=== PATIENT | female | born 1990 | race African-American/Black ===

== ENCOUNTER 2019-10-30 13:24 | Outpatient (CLI) | payer OTHER, SELFPAY ==
--- NOTE | ~2019-10-30 | US_ITS ---
EXAMINATION: US OB <= 14 weeks fetus DATE: 10/30/2019 14:34 INDICATION: Supervision of normal during first trimester TECHNIQUE: Real-time pelvic ultrasound utilizing both a transvaginal and transabdominal probe was pe rformed. The interpreting radiologist was not present for the study. COMPARISON: None. FINDINGS: The uterus measures 12.9 x 7.3 x 8.7 cm. There is an intrauterine gestational sac. A yolk sac and fe arabella pole are identified. The crown rump length measures 4.6 cm, which correlates with an estimated ge stational age of 11 weeks and 3 days. heart motion is identified measuring 161 beats per minute (bpm) by M-mode Doppler. 14 x 8 x 7 mm anechoic subchorionic hematoma along the left margin of the a nteriorly developing placenta. The right ovary measures 4.0 x 2.4 x 2.6 and contains a 2.0 cm anechoic likely corpus luteum cyst. Va scular flow identified in the right ovary on color Doppler. The left ovary is not visualized. There i s no free fluid in the pelvis. IMPRESSION: 1. Single living fetus with heart rate of 161 bpm. 2. Gestational age by ultrasound of 11 weeks 3 day(s) +/- 7 days with ultrasound estimated date of d elivery (SINDHU) of 05/17/2020. 3. Small subchorionic hematoma. Reviewed, dictated and finalized at location A. OWS SOFTWARE DEVELOPER IMPRESSION: 1. Single living fetus with heart rate of 161 bpm. 2. Gestational age by ultrasound of 11 weeks 3 day(s) +/- 7 days with ultrasou nd estimated date of delivery (SINDHU) of 05/17/2020. 3. Small subchorionic hematoma.
== END 2019-10-30 13:25 | disposition home or self-care (01) ==
LOC: ANHIMG 13:34
PROVIDERS: Visit Provider Physician Assistant
DX: Z34.90 Encounter for supervision of normal pregnancy, unspecified, unspecified trimester (principal); Z3A.11 11 weeks gestation of pregnancy; O36.8911 Maternal care for other specified fetal problems, first trimester, fetus 1
CPT/HCPCS: 76801

== ENCOUNTER 2024-07-03 12:39 | Outpatient (CLI) | payer OTHER, SELFPAY ==
[2024-07-03 14:20] LABS: Basophils Percent Auto 0.2 % (0.2-1.2); Eosinophils Absolute Auto 0.1 K/mm3 (0-0.3); Eosinophils Percent Auto 1.4 % (0-4.4); Hemoglobin 10.7 g/dL (12.0-15.0); Immature Granulocyte Absolute 0.07 K/mm3 (0.00-0.031); Immature Granulocyte Percent A 0.8 % (0-0.5); Lymphocytes Absolute Auto 1.24 K/mm3 (0.9-3.2); Lymphocytes Percent Auto 14.2 % (18.3-44.2); Mean Corpuscular HGB Conc 31.5 g/dl (32-36); Mean Corpuscular Hemoglobin 28.8 pg (26-34); Mean Corpuscular Volume 91.6 fl (80-100); Mean Platelet Volume 11.3 fl (7.4-10.4); Monocytes Absolute Auto 0.7 K/mm3 (0.1-0.6); Monocytes Percent Auto 8.4 % (2.6-8.5); Neutrophils Absolute Auto 6.6 K/mm3 (1.3-6.7); Platelet Count Result 232 k/mm3 (150-375); Red Blood Count 3.71 M/mm3 (4.2-5.4); Red Cell Distribution Width 13.3 % (11.5-14.5); White Blood Count 8.7 K/mm3 (4.5-10.0)
[2024-07-03 14:50] LABS: Glucose 1 Hour PP 50gm Dose 108 mg/dL
[2024-07-03 17:06] LABS: Rapid Plasma Reagin Non-Reactive (NonReactive)
[2024-07-03 18:24] LABS: HIV 1/2 Ab P24 Ag Result Negative (Negative)
== END 2024-07-03 12:40 | disposition home or self-care (01) ==
LOC: ANHLAB 12:44
PROVIDERS: Visit Provider Obstetrics & Gynecology
DX: Z34.90 Encounter for supervision of normal pregnancy, unspecified, unspecified trimester (principal); Z3A.00 Weeks of gestation of pregnancy not specified
CPT/HCPCS: 36415; 82947; 85025; 86592; 86703; G0432

== ENCOUNTER 2024-08-01 11:49 | Outpatient (RCR) | payer OTHER, SELFPAY ==
--- NOTE | ~2024-08-01 | US_ITS ---
EXAMINATION: US OB BPP wo non-stress DATE: 08/01/2024 14:02 ANALYTICAL LEAD INDICATION: Small for gestational age TECHNIQUE: Real-time transabdominal obstetric ultrasound. FINDINGS: No prior studies for comparison. There is a single living fetus in vertex presentation. The placenta is maternal left without placent a previa. cardiac activity and movement is noted with a heart rate of 133 beats per minute. Biophysical profile: breathin of 2 movement: 2 of 2 tone: 2 of 2 Amniotic flud pocket: 2 of 2 Total score: 8 of 8 IMPRESSION: 1. Single living intrauterine in vertex presentation. 2: Total biophysical profile score of 8/8. Reviewed, dictated and finalized at location B. YTICAL LEAD
[2024-08-01 13:29] VITALS: BP 123/86; PULSE 99
== END 2024-10-30 23:59 | disposition home or self-care (01) ==
LOC: ANHOBOP 11:49
PROVIDERS: Visit Provider Student in an Organized Health Care Education/Training Program
DX: O26.849 Uterine size-date discrepancy, unspecified trimester (principal)
CPT/HCPCS: 59025; 76819

== ENCOUNTER 2024-08-08 17:24 | Emergency (ER) | payer OTHER, SELFPAY ==
--- NOTE | 2024-08-08 17:50 | ED.EXTPRO ---
HPI - Extremity Problem General Chief complaint: Extremity Problem,Nontraumatic Stated complaint: swelling to hands and legs Time Seen by Provider: 08/08/24 17:50 Focused HPI: This is a 34 year old female that presents to the ER for swelling. This has been going on intermittently throughout her . She is currently 32 weeks. Her OB is Dr. Treviño. Denies chest pain or shortness of breath. She noticed her blood pressure has been running high as well today. She is feeling baby move. No bleeding or pelvic pain/cramping. GENERAL: Well-appearing, well-nourished, and in no acute distress. HEAD: Normocephalic, atraumatic. CHEST: Clear to auscultation. ?No respiratory distress. HEART: Regular rate and rhythm.? NEURO: ?Alert and oriented x3. Patient screened in triage and initial orders placed.? ?Additional care and disposition to be based upon?diagnostic testing and treatment. Related Data Home Medications Medication Instructions Recorded Confirmed albuterol sulfate 90 mcg/actuation inhalation 04/02/24 07/30/24 aerosol inhaler (Ventolin HFA) Allergies Allergy/AdvReac Type Severity Reaction Status Date / Time No Known Allergies Allergy Unknown Verified 07/30/24 09:43 [facility] Past Medical History Medical History Asthma HSV-2 (herpes simplex virus 2) infection Surgical History Surgical History History of delivery X 2 Family History Family History Mother Asthma Social History Social History Smoking status: Former smoker Smoking end date: 09/21/23 Alcohol intake: current Alcohol use details: occasional Substance use: never Substance use type: does not use Do You Feel Safe in your Home?: Yes Lack of Transportation: No Lack of Food: Never True Current Housing: I Have Housing Concerned About Future Housing: No Difficulty Paying Gas/Electric Bills: No Difficulty Paying for Meds: YES Currently Unemployed: No Education: Trade/Vocational Certificate Difficulty w/ Childcare or Family Care: No Living arrangements: with family Occupation/Education: occupation 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 Gender identity (if verbalized by the patient): Female Sexual Orientation (if Verbalized by the Patient): Straight or Heterosexual Discharge Plan Discharge Prescriptions: No Action vit-iron fum-folic ac 65 mg iron- 1 mg tablet 1 tablet PO DAILY Qty: 90 3RF albuterol sulfate [Ventolin HFA] 90 mcg/actuation HFA aerosol inhaler inhalation Abrysvo (PF) 120 mcg/0.5 mL recon soln 0.5 ml IM ONCE Qty: 1 0RF Rx Instructions: as a single dose fluticasone propion-salmeterol [Advair Diskus] 100-50 mcg/dose blister with device 1 inh inhalation Q12H Qty: 60 3RF Follow-up/Referrals: PHYSICIAN NOT ON STAFF,NONSTAFF [Primary Care Provider] -
[2024-08-08 17:57] VITALS: BP 145/89; PULSE 90; RESP 20; TEMP 36.7; O2SAT 100
[2024-08-08 18:31] LABS: Basophils Percent Auto 0.2 % (0.2-1.2); Eosinophils Absolute Auto 0.2 K/mm3 (0-0.3); Hematocrit 33.4 % (37.0-47.0); Hemoglobin 10.8 g/dL (12.0-15.0); Immature Granulocyte Absolute 0.04 K/mm3 (0.00-0.031); Immature Granulocyte Percent A 0.4 % (0-0.5); Lymphocytes Absolute Auto 1.66 K/mm3 (0.9-3.2); Lymphocytes Percent Auto 18.7 % (18.3-44.2); Mean Corpuscular HGB Conc 32.3 g/dl (32-36); Mean Corpuscular Hemoglobin 29.8 pg (26-34); Mean Platelet Volume 12.1 fl (7.4-10.4); Monocytes Absolute Auto 0.7 K/mm3 (0.1-0.6); Monocytes Percent Auto 7.6 % (2.6-8.5); Neutrophils Absolute Auto 6.3 K/mm3 (1.3-6.7); Neutrophils Percent Auto 71.1 % (45.5-73.1); Nucleated Red Blood Cells Perc 0.2 % (0.0-0.2); Platelet Count Result 226 k/mm3 (150-375); Red Blood Count 3.63 M/mm3 (4.2-5.4); Red Cell Distribution Width 14.2 % (11.5-14.5); White Blood Count 8.9 K/mm3 (4.5-10.0)
[2024-08-08 18:49] LABS: Lactate Dehydrogenase 181 U/L (120-246)
[2024-08-08 18:51] LABS: Alanine Aminotransferase 17 U/L (6-35); Albumin Level 3.6 g/dL (3.5-5.1); Alkaline Phosphatase 104 U/L (38-126); Anion Gap 7 mmol/L (4-12); Aspartate Amino Transferase 20 U/L (14-36); Bilirubin,Total 0.2 mg/dL (0.2-1.3); Blood Urea Nitrogen 10 mg/dL (7-17); Calcium 9.3 mg/dL (8.4-10.2); Carbon Dioxide 23 mmol/L (22-30); Chloride 102 mmol/L (98-107); Estimated CRCL calculation 160 ml/min; Estimated Glomerular Filt Rate > 60; Glucose 85 mg/dL (65-110); Potassium 3.9 mmol/L (3.4-5.0); Sodium 132 mmol/L (137-145)
[2024-08-08 20:34] LABS: Add Urine Microscopic? YES; Appearance Urine Cloudy (Clear); Bacteria Urine 1+ /hpf; Bilirubin Urine Negative (Negative); Blood Urine Negative (Negative); Color Urine Yellow (Yellow); Glucose Urine UA Negative (Negative); Ketones Urine Negative (Negative); Leukocyte Esterase Ur Negative LEU/UL (Negative); Nitrate Urine Negative (Negative); Non Pathogenic Casts 0-2; Protein Urine 1+ mg/dL (Negative); RBC Urine 0-2 /hpf (0-2); Specific Grav Ur 1.017 (1.001-1.035); Squamous Epithelial Cell Urine Many /hpf (Few); pH Urine 6.5 (5.0-9.0)
--- NOTE | 2024-08-08 20:39 | PC.NURSE ---
Pt ambulated to desk and requested for her vitals to be rechecked. This RN took pt's vitals and read them to pt. Pt states she is feeling fine and does not want to wait any longer to be seen. This RN encouraged pt to be seen by a doctor. Pt stated she will return if she gets worse. Pt then ambulated out of the ED.
== END 2024-08-08 21:28 | disposition left against medical advice (07) ==
PROVIDERS: Emergency Provider Physician Assistant
DX: R03.0 Elevated blood-pressure reading, without diagnosis of hypertension (principal)
CPT/HCPCS: 36415; 80053; 81001; 83615; 85025; 87086; 99199

== ENCOUNTER 2024-08-13 10:32 | Outpatient (CLI) | payer OTHER, SELFPAY ==
[2024-08-13] VITALS (46 sets, daily range): BP systolic 114–140; BP diastolic 61–78; PULSE 25–151; RESP 16; TEMP 36.2–36.4; O2SAT 76–100
--- NOTE | ~2024-08-13 | US_ITS ---
EXAMINATION: US OB BPP wo non-stress DATE: 08/13/2024 13:23 INDICATION: -induced hypertension during third trimester TECHNIQUE: Real-time pelvic ultrasound was performed. The interpreting radiologist was not present fo r the study. COMPARISON: 08/01/2024 FINDINGS: There is a single living fetus in vertex presentation. The placenta is left fundal. heart rate is 137 beats per minute (bpm). The amniotic fluid volume appears subjectively at the lower range of normal. The deepest vertical pocket measures 2.8 cm which remains within normal limits. Biophysical profile performed by the technologist: breathing (30 sec sustained breathing in 30 minutes): 2 out of 2 movement (3 gross body movements in 30 minutes): 2 out of 2 tone (one episode of [id number] limb movement): 0 out of 2 Amniotic fluid pocket (2 cm): 2 out of 2 Total score: 6 out of 8 IMPRESSION: 1. Single living fetus in vertex presentation with heart rate of 137 bpm. 2. Biophysical profile 6 out of 8. 3. Normal deepest vertical amniotic fluid pocket measurement of 2.8 cm with fluid volume is subjectiv jacki at the lower range of normal. Reviewed, dictated and finalized at location B. ERPRINTER IMPRESSION: 1. Single living fetus in vertex presentation with heart rate of 137 bpm. 2. Biophysical profile 6 out of 8. 3. Normal deepest vertical amniotic fluid pocket measurement of 2.8 cm with flu id volume is subjectively at the lower range of normal.
[2024-08-13 11:04] LABS: Basophils Percent Auto 0.1 % (0.2-1.2); Eosinophils Absolute Auto 0.3 K/mm3 (0-0.3); Eosinophils Percent Auto 3.4 % (0-4.4); Hematocrit 32.1 % (37.0-47.0); Hemoglobin 10.2 g/dL (12.0-15.0); Immature Granulocyte Absolute 0.03 K/mm3 (0.00-0.031); Immature Granulocyte Percent A 0.4 % (0-0.5); Lymphocytes Absolute Auto 1.24 K/mm3 (0.9-3.2); Lymphocytes Percent Auto 16.4 % (18.3-44.2); Mean Corpuscular HGB Conc 31.8 g/dl (32-36); Mean Corpuscular Hemoglobin 29.6 pg (26-34); Mean Platelet Volume 11.7 fl (7.4-10.4); Monocytes Absolute Auto 0.6 K/mm3 (0.1-0.6); Monocytes Percent Auto 7.9 % (2.6-8.5); Neutrophils Absolute Auto 5.4 K/mm3 (1.3-6.7); Neutrophils Percent Auto 71.8 % (45.5-73.1); Nucleated Red Blood Cells Perc 0.4 % (0.0-0.2); Platelet Count Result 183 k/mm3 (150-375); Red Blood Count 3.45 M/mm3 (4.2-5.4); Red Cell Distribution Width 14.2 % (11.5-14.5); White Blood Count 7.6 K/mm3 (4.5-10.0)
[2024-08-13 11:21] LABS: Alanine Aminotransferase 14 U/L (6-35); Albumin Level 3.1 g/dL (3.5-5.1); Alkaline Phosphatase 104 U/L (38-126); Anion Gap 5 mmol/L (4-12); Aspartate Amino Transferase 18 U/L (14-36); Bilirubin,Total 0.3 mg/dL (0.2-1.3); Blood Urea Nitrogen 9 mg/dL (7-17); Calcium 8.5 mg/dL (8.4-10.2); Carbon Dioxide 24 mmol/L (22-30); Chloride 107 mmol/L (98-107); Estimated Glomerular Filt Rate > 60; Glucose 90 mg/dL (65-110); Potassium 3.9 mmol/L (3.4-5.0); Sodium 136 mmol/L (137-145); Uric Acid 4.6 mg/dL (2.5-7.5)
[2024-08-13 11:26] LABS: Add Urine Microscopic? YES; Appearance Urine Clear (Clear); Bacteria Urine None Seen /hpf; Bilirubin Urine Negative (Negative); Blood Urine Trace (Negative); Color Urine Yellow (Yellow); Glucose Urine UA Negative (Negative); Ketones Urine Negative (Negative); Leukocyte Esterase Ur Negative LEU/UL (Negative); Nitrate Urine Negative (Negative); Non Pathogenic Casts 0-2; Protein Urine 2+ mg/dL (Negative); Specific Grav Ur 1.035 (1.001-1.035); Squamous Epithelial Cell Urine Occasional /hpf (Few); WBC Urine 0-5 /hpf (0-3)
[2024-08-13 11:37] LABS: Creatinine Urine 260.4 mg/dL; Total Protein Urine Random 86 mg/dL; Ur Ttl Prot Creatinine Ratio 0.33 mg/mg (0-0.20)
--- NOTE | 2024-08-13 12:18 | PC.NURSE ---
This RN called and spoke with Dr. Treviño to inform of NST being inconclusive and abnormal lab results. verbalized understanding. Would like a BPP. If normal, pt may go home and then come back next week for repeat labs and NST. RN repeated back to confirm.
--- NOTE | 2024-08-13 13:16 | PC.NURSE ---
This RN called Dr. Treviño to notify that BPP results 03/01. MD orders to keep patient on monitor at this time until further direction. RN repeated order back to confirm, no further orders given at this time.
--- NOTE | 2024-08-13 14:00 | PC.NURSE ---
1400: RN gave report to [facility] nurse.
--- NOTE | 2024-08-13 14:20 | PC.NURSE ---
Verbally spoke with Dr. Treviño at nurses station regarding irregular HR (maternal). MD ordered stat EKG before transfer to outside hospital. RN repeated back to confirm.
--- NOTE | 2024-08-13 14:24 | PM.IMHP ---
H&P: HPI History of Present Illness Date/Time: 08/13/24 14:24 Chief Complaint: Preeclampsia h/o x2 velamentous cord insertion IUGR obesity asthma Narrative: 34 yo at 33w5d who was sent from outpatient visit for work up for preeclampsia. Patient was noted to have mild range blood pressure in the office today. She was evaluated in the ED on 08/08/24 for increased swelling and was noted to have mild range blood pressure at that time as well. Her protein was elevated on urine stick at her outpatient visit. Review of Systems Cardiovascular: Cardiovascular: Denies chest pain, Reports leg edema, Denies palpitations, Denies dyspnea and Reports dyspnea on exertion Respiratory: Respiratory: Denies cough, Denies dyspnea and Denies dyspnea on exertion Gastrointestinal: Gastrointestinal: Denies abdominal pain, Denies constipation, Denies diarrhea, Denies nausea and Denies vomiting Genitourinary: Genitourinary: Denies hematuria, Denies urinary frequency, Denies dysuria, Denies pelvic pain, Denies urinary incontinence and Denies vaginal discharge Neurologic: Reports system reviewed and no additional complaints, except as documented Psychiatric: Psychiatric: Reports no additional psychiatric complaints Endocrine: Endocrine: Denies palpitations PMFSH Past Medical History Medical History Asthma HSV-2 (herpes simplex virus 2) infection Surgical History Surgical History History of delivery X 2 Family History Family History Mother Asthma Social History Social History Smoking status: Former smoker Smoking end date: 09/21/23 Alcohol intake: current Alcohol use details: occasional Substance use: never Substance use type: does not use Do You Feel Safe in your Home?: Yes Lack of Transportation: No Lack of Food: Never True Current Housing: I Have Housing Concerned About Future Housing: No Difficulty Paying Gas/Electric Bills: No Difficulty Paying for Meds: YES Currently Unemployed: No Education: Trade/Vocational Certificate Difficulty w/ Childcare or Family Care: No Living arrangements: with family Occupation/Education: occupation 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 Gender identity (if verbalized by the patient): Female Sexual Orientation (if Verbalized by the Patient): Straight or Heterosexual Meds Home Medications and Allergies Home Medications Medication Instructions Recorded Confirmed Type albuterol sulfate 90 mcg/actuation 1 puff inhalation PRN 04/02/24 08/13/24 History aerosol inhaler (Ventolin HFA) vitamins-iron fumarate 65 1 tablet PO DAILY #90 tabs 06/11/24 08/13/24 Rx mg iron-folic acid 1 mg tablet sertraline 50 mg tablet 50 mg PO DAILY #90 tabs 08/13/24 08/13/24 Rx Allergies Allergy/AdvReac Type Severity Reaction Status Date / Time ketorolac Allergy Itching Verified 08/13/24 11:08 Vital Signs Vital Signs - 24 hr 08/13/24 10:54 08/13/24 10:54 08/13/24 10:54 Temperature Pulse Rate Blood Pressure 131/78 Blood Pressure [Right Arm] Pulse Oximetry 84 L 91 08/13/24 10:54 08/13/24 10:59 08/13/24 11:01 Temperature Pulse Rate 85 81 Blood Pressure 118/77 Blood Pressure [Right Arm] Pulse Oximetry 99 08/13/24 11:12 08/13/24 11:16 08/13/24 11:17 Temperature Pulse Rate 76 Blood Pressure 130/77 Blood Pressure [Right Arm] Pulse Oximetry 99 98 08/13/24 11:22 08/13/24 11:27 08/13/24 11:32 Temperature Pulse Rate 48 L Blood Pressure 131/61 Blood Pressure [Right Arm] Pulse Oximetry 98 97 100 08/13/24 11:36 08/13/24 11:36 08/13/24 11:41 Temperature Pulse Rate Blood Pressure Blood Pressure [Right Arm] Pulse Oximetry 98 99 97 08/13/24 11:46 08/13/24 11:47 08/13/24 11:51 Temperature Pulse Rate 50 L Blood Pressure 114/62 Blood Pressure [Right Arm] Pulse Oximetry 92 90 08/13/24 11:56 08/13/24 12:01 08/13/24 12:02 Temperature Pulse Rate 70 Blood Pressure 131/68 Blood Pressure [Right Arm] Pulse Oximetry 94 95 08/13/24 12:06 08/13/24 12:15 08/13/24 12:16 Temperature Pulse Rate 40 L Blood Pressure 140/65 Blood Pressure [Right Arm] Pulse Oximetry 96 86 L 08/13/24 12:20 08/13/24 12:24 08/13/24 12:29 Temperature Pulse Rate Blood Pressure Blood Pressure [Right Arm] Pulse Oximetry 96 93 96 08/13/24 13:40 08/13/24 13:45 08/13/24 13:50 Temperature Pulse Rate Blood Pressure Blood Pressure [Right Arm] Pulse Oximetry 81 L 99 99 08/13/24 13:55 08/13/24 14:00 08/13/24 14:05 Temperature Pulse Rate Blood Pressure Blood Pressure [Right Arm] Pulse Oximetry 98 98 100 08/13/24 14:10 08/13/24 14:12 08/13/24 14:13 Temperature Pulse Rate Blood Pressure Blood Pressure [Right Arm] Pulse Oximetry 95 76 L 78 L 08/13/24 14:13 08/13/24 14:14 08/13/24 14:15 Temperature Pulse Rate Blood Pressure Blood Pressure [Right Arm] Pulse Oximetry 79 L 79 L 79 L 08/13/24 14:15 08/13/24 12:30 08/13/24 12:30 Temperature 97.2 F L Pulse Rate 77 Blood Pressure Blood Pressure [Right Arm] 131/78 Pulse Oximetry 77 L Exam Const: General: cooperative, no acute distress and obese Eyes: EOM: EOMs intact bilaterally Neck: Neck: supple Thyroid: thyroid normal Chest: Breast/axilla inspection: normal inspection of the breasts Breast/axilla palpation: normal palpation of the breasts, normal palpation of the axillae and no axillary lymphadenopathy Resp: Effort & Inspection: normal respiratory effort Auscultation: clear to auscultation bilaterally Cardio: Rate: regular rate Rhythm: regular rhythm GI: Inspection: non-distended and other (Gravid) GI Palp: Yes Soft to palpation, No Tenderness to palpation present (GI) and No Guarding due to palpation present (GI) Auscultation: normal bowel sounds : Speculum Exam - Vagina: No vaginal bleeding OB/external & speculum: external exam normal; No vaginal bleeding Skin: General skin exam: normal color and no rashes or lesions noted Neuro: Cognition (Neuro): normal cognition Speech: normal speech Extrem: General: normal to inspection Psych: Mental Status: mental status grossly normal Affect: normal affect H&P: Results Labs Labs: Short CBC 08/13/24 Range/Units 10:50 WBC 7.6 (4.5-10.0) K/mm3 Hgb 10.2 L (12.0-15.0) g/dL Hct 32.1 L (37.0-47.0) % Plt Count 183 (150-375) k/mm3 BMP 08/13/24 10:50 Sodium 136 L Potassium 3.9 Chloride 107 Carbon Dioxide 24 BUN 9 Creatinine 0.80 Glucose 90 Calcium 8.5 Liver Function 08/13/24 Range/Units 10:50 Total Bilirubin 0.3 (0.2-1.3) mg/dL AST 18 (14-36) U/L ALT 14 (6-35) U/L Alkaline Phosphatase 104 (38-126) U/L Albumin 3.1 L (3.5-5.1) g/dL Urine 08/13/24 Range/Units 10:50 Urine Color Yellow (Yellow) Urine Appearance Clear (Clear) Urine pH 6.0 (5.0-9.0) Ur Specific [place] 1.035 (1.001-1.035) Urine Protein 2+ H (Negative) mg/dL Urine Glucose (UA) Negative (Negative) mg/dL Assessment and Plan Assessment and plan (1) affected by growth restriction: Code(s): O36.5990 - Maternal care for other known or suspected poor growth, unspecified trimester, not applicable or unspecified Status: Acute Assessment and Plan: -transfer of care @ 16w - IUGR since anatomy scan -low risk NIPT, female -most recent doppler study 08/12/24 (2) Velamentous insertion of umbilical cord in third trimester: Code(s): O43.123 - Velamentous insertion of umbilical cord, third trimester Status: Acute (3) Preeclampsia: Code(s): O14.90 - Unspecified pre-eclampsia, unspecified trimester Status: Acute Assessment and Plan: patient noted to have elevated blood pressures on two separate reading on 08/08 and today proteinuria noted in office UPCR returned 0.33 diagnosis of preeclampsia established normal to mild range BP NST was not reactive BPP score 6/8 (tone) given new diagnosis of preeclampsia in the setting of severe IUGR, prior , velamentous cord insertion, recommended transfer of care to [facility] for anticipated delivery discussed plan of care if accepting MFM team will administer BTMS will initial magnesium sulfate infusion (4) History of section complicating : Code(s): O34.219 - Maternal care for unspecified type scar from previous delivery Status: Acute Assessment and Plan: prior x2 (5) Obesity affecting in third trimester: Code(s): O99.213 - Obesity complicating , third trimester Status: Acute (6) HSV-2 infection complicating : Code(s): O98.519 - Other viral diseases complicating , unspecified trimester; B00.9 - Herpesviral infection, unspecified Status: Acute (7) Asthma affecting in third trimester: Code(s): O99.513 - Diseases of the respiratory system complicating , third trimester; J45.909 - Unspecified asthma, uncomplicated Status: Acute
--- NOTE | 2024-08-13 14:25 | ECG_ITS ---
Test Date: 2024-08-13 14:49:15 Measurements Intervals [place] Rate: 75 P: 24 CO: 133 QRS: 62 QRSD: 82 T: 35 QT: 360 QTc: 402 Interpretive Statements SINUS RHYTHM NON-CONDUCTED ATRIAL PREMATURE COMPLEX AND VENTRICULAR PREMATURE COMPLEX BASELINE ARTIFACT- I, II, AVR, AVL, AVF, V1 BORDERLINE ECG No previous ECG available for comparison Electronically Signed On 08-13-2024 14:57:59 MOVER HELPER by David Shah D.O.
[2024-08-13] MEDS: MAGNESIUM SULF 4 GM/WATER100ML 4 GM/100 ML BAG IVPB (14:29)
[2024-08-13] MEDS: BETAMETHASONE SOD PHOS/ACETATE 30 MG/5 ML VIAL 12 MG IM (14:36)
[2024-08-13] MEDS: LACTATED RINGERS 1,000 ML 75 ML IV CONT (14:36)
--- NOTE | 2024-08-13 15:03 | PC.NURSE ---
Called and left voicemail for MD regarding critical EKG result. Awaiting call back at this time.
--- NOTE | 2024-08-13 15:06 | PC.NURSE ---
This RN received call back from Dr. Treviño and informed of critical EKG result. verbalized understanding, would like EKG to be sent with transfer packet. No further orders given at this time.
--- NOTE | 2024-08-13 15:19 | OBADM ---
This patient, Concetta Rico, admitted to the OB room OB Post 117 for observation. Patient/family oriented to hospital policies and general routines including ID bracelet, bed and alarms, visiting hours, pain management, procedures, bathroom and other care routines, personal items, smoking policy, room service/diet, and visiting hours. Patient/Family are encouraged to report perceived risks to care and to ask questions if they do not understand what they are told or what they should do.
--- NOTE | 2024-08-13 15:43 | PC.NURSE ---
1340: MAITE Lopez received report from MAITE Oshea
--- NOTE | 2024-08-13 15:48 | PC.NURSE ---
1351: Dr. Treviño called RN. orders to transport patient to [place]. OB stated he has already talked to [facility] and that they are sending transport now. Orders to give Betamethasone now, and give 4 g magnesium Bolus with a 2 g maintance dose of Magnesium.
== END 2024-08-13 15:15 ==
LOC: ANHOBOP 10:37 → ANHOBPP 10:39
PROVIDERS: PCP Student in an Organized Health Care Education/Training Program; Visit Provider Student in an Organized Health Care Education/Training Program
DX: O13.9 Gestational [pregnancy-induced] hypertension without significant proteinuria, unspecified trimester (principal); Z3A.00 Weeks of gestation of pregnancy not specified
CPT/HCPCS: 36415; 59025; 76819; 80053; 81001; 82570; 84156; 84550; 85025; 93005; 96372; J0702; J3475; J7120